=== PATIENT | female | born 1950 | race Two or more races ===

== ENCOUNTER 2024-09-11 21:24 | Inpatient (IN) | payer MEDICARE, OTHER ==
[~2024-09-11] VITALS: Ht 154.9 cm; Wt 72.2 kg
[2024-09-11 21:54] LABS: BASOPHILS # (AUTO) 0.2 K/UL (0.0-0.2); BASOPHILS % (AUTO) 1.1 % (0.0-2.0); EOSINOPHILS # (AUTO) 0.1 K/uL (0.0-0.7); EOSINOPHILS % (AUTO) 0.5 % (0.0-7.0); HEMATOCRIT 30.2 % (31.2-41.9); HEMOGLOBIN 9.8 g/dL (10.9-14.3); LYMPHOCYTES # (AUTO) 2.5 K/uL (0.8-4.8); LYMPHOCYTES % (AUTO) 15.5 % (20.5-51.5); MEAN CORPUSCULAR HEMOGLOBIN 23.4 uug (24.7-32.8); MEAN CORPUSCULAR HGB CONC 32 g/dL (32.3-35.6); MEAN CORPUSCULAR VOLUME 72.1 fL (75.5-95.3); MONOCYTES # (AUTO) 1.1 K/uL (0.1-1.30); MONOCYTES % (AUTO) 6.8 % (0.0-11.0); NEUTROPHILS # (AUTO) 12.3 K/uL (1.8-8.9); NEUTROPHILS % (AUTO) 76.1 % (38.5-71.5); PLATELET COUNT (AUTO) 140 K/uL (179-408); RED BLOOD CELL COUNT(AUTO) 4.19 MIL/uL (3.63-4.92); RED CELL DISTRIBUTION WIDTH 17.6 % (12.3-17.7); WHITE BLOOD COUNT (AUTO) 16.2 K/uL (3.8-11.8)
[2024-09-11 21:57] LABS: DIFFERENTIAL COMMENT 1
[2024-09-11 22:12] LABS: CALCIUM 10.1 mg/dL (8.5-10.1); CARBON DIOXIDE 29 mmol/L (21-32); CHLORIDE 93 mmol/L (98-107); CREATININE 2.5 mg/dL (0.6-1.3); POTASSIUM 3.8 mmol/L (3.5-5.1); SODIUM SERUM 130 mmol/L (136-145)
[2024-09-11 22:15] LABS: GLUCOSE 429 mg/dL (74-106); UREA NITROGEN, BLOOD 89 mg/dL (7-18)
[2024-09-11 22:18] LABS: ALANINE AMINOTRANSFERASE 120 U/L (14-59); ALBUMIN 3.1 g/dL (3.4-5.0); ALKALINE PHOSPHATASE 188 U/L (50-136); ASPARTATE AMINOTRANSFERASE 88 U/L (15-37); BILIRUBIN,DIRECT 0.2 mg/dL (0.0-0.2); BILIRUBIN,TOTAL 0.4 mg/dL (0.2-1.0); TOTAL PROTEIN, SERUM 8.6 g/dL (6.4-8.2)
[2024-09-11] MEDS ORDERED: FERR220S16 GT (22:19)
[2024-09-11] MEDS ORDERED: BACL10TA GT (22:19)
[2024-09-11] MEDS ORDERED: LEVE100S GT (22:19)
[2024-09-11] MEDS ORDERED: ONDA-104 GT (22:19)
[2024-09-11] MEDS ORDERED: ICOS1CAP GT (22:19)
[2024-09-11] MEDS ORDERED: INSU100V11 (22:19)
[2024-09-11] MEDS ORDERED: ALBU2.5V13 IH ×2 (22:19)
[2024-09-11] MEDS ORDERED: NA P133E RC (22:19)
[2024-09-11] MEDS ORDERED: MAGN400O6 GT (22:19)
[2024-09-11] MEDS ORDERED: ATOR20TA GT (22:19)
[2024-09-11] MEDS ORDERED: ATEN25TA GT (22:19)
[2024-09-11] MEDS ORDERED: [UNRECOGNIZED DRUG - CODE] TP (22:19)
[2024-09-11] MEDS ORDERED: SENN-18 GT (22:19)
[2024-09-11] MEDS ORDERED: ACID1TAB12 GT (22:19)
[2024-09-11] MEDS ORDERED: MEMA5TAB GT (22:19)
[2024-09-11] MEDS ORDERED: ESCI5TAB GT (22:19)
[2024-09-11] MEDS ORDERED: LETR2.5T GT (22:19)
[2024-09-11] MEDS ORDERED: ASCO500C18 GT (22:19)
[2024-09-11] MEDS ORDERED: CRAN3875 GT (22:19)
[2024-09-11] MEDS ORDERED: INSU100V7 SQ (22:19)
[2024-09-11] MEDS ORDERED: OMEG-88 GT (22:19)
[2024-09-11] MEDS ORDERED: MULT-1045 GT (22:19)
[2024-09-11] MEDS ORDERED: BISA10SU12 RC (22:19)
[2024-09-11] MEDS ORDERED: [UNRECOGNIZED DRUG - OTHER] TD (22:19)
[2024-09-11] MEDS ORDERED: ACET-73 GT (22:19)
[2024-09-11] MEDS ORDERED: ASPI81TA31 GT (22:19)
[2024-09-11 22:23] LABS: LACTIC ACID 2.2 mmol/L (0.4-2.0)
[2024-09-11 23:37] LABS: *BILIRUBIN,URIN NEGATIVE (NEGATIVE); *BLOOD, URINE 2+ (NEGATIVE); *CLARITY,URINE SLIGHTLY CLOUDY (CLEAR); *COLOR,URINE YELLOW (YELLOW); *KETONES,URINE NEGATIVE (NEGATIVE); *PROTEIN,URINE 2+ (NEGATIVE); *UROBILINOGEN,URINE 0.2 E.U./dl (NORMAL); LEUKOCYTE ESTERASE ,URINE 3+ (NEGATIVE); NITRITE, URINE NEGATIVE (NEGATIVE); PH,URINE 5.5 (5.0-8.0); UGLUCOSE TRACE (NEGATIVE)
[2024-09-11 23:44] LABS: BACTERIA,URINE MODERATE /HPF (NONE SEEN); MUCUS,URINE MANY /LPF (0-FEW); SQUAMOUS EPITHELIAL CELL,UR MODERATE /HPF (NONE SEEN); WBC,URINE 20-50 /HPF (0-3)
[2024-09-12] VITALS (8 sets, daily range): BP systolic 108–159; BP diastolic 43–71; TEMP 97.6–98.4; O2SAT 96–100
[2024-09-12] MEDS: IV NORMAL SALINE 1000 ML BAG IV ONE ×2 (00:52→02:27)
[2024-09-12] MEDS ORDERED: CEFTRIAXONE /D5W 50ML IVPB **ER PYXIS IV ONE (00:55)
[2024-09-12] MEDS: CEFTRIAXONE 1 G in IV DEXTROSE 5% 50 ML IV ONE (01:03)
[2024-09-12] MEDS ORDERED: ONDANSETRON 4 MG/2 ML VIAL IV PRN (02:30)
[2024-09-12] MEDS ORDERED: MAGNESIUM HYDROXIDE 30 ML LIQUID UDC PO PRN (02:30)
[2024-09-12] MEDS ORDERED: ACETAMINOPHEN 325 MG TABLET PO PRN (02:30)
[2024-09-12] MEDS ORDERED: REMEDY ESSENTIAL ZINC PASTE 113 GM TP PRN (02:30)
[2024-09-12] MEDS: IV NS 1000 ML 1,000 ML IV PRN (04:31)
[2024-09-12] MEDS: ENOXAPARIN SODIUM 30 MG/0.3 ML DISP.SYRIN SQ SCH (04:34)
[2024-09-12] MEDS: PANTOPRAZOLE SODIUM 40 MG VIAL IV SCH (08:55)
[2024-09-12 09:57] LABS: ALANINE AMINOTRANSFERASE 81 U/L (14-59); ALBUMIN 2.4 g/dL (3.4-5.0); ALKALINE PHOSPHATASE 103 U/L (50-136); ASPARTATE AMINOTRANSFERASE 52 U/L (15-37); BILIRUBIN,TOTAL 0.4 mg/dL (0.2-1.0); CALCIUM 8.7 mg/dL (8.5-10.1); CARBON DIOXIDE 27 mmol/L (21-32); CHLORIDE 104 mmol/L (98-107); CREATININE 2.3 mg/dL (0.6-1.3); GLUCOSE 311 mg/dL (74-106); MAGNESIUM 2.3 mg/dL (1.8-2.4); PHOSPHOROUS 2.5 mg/dL (2.5-4.9); POTASSIUM 3.5 mmol/L (3.5-5.1); SODIUM SERUM 138 mmol/L (136-145); TOTAL PROTEIN, SERUM 7.1 g/dL (6.4-8.2)
[2024-09-12 10:15] LABS: UREA NITROGEN, BLOOD 81 mg/dL (7-18)
[2024-09-12 12:52] LABS: *CREATININE,URINE 24.7 mg/dL (30-125); *URINE TOTAL PROTEIN RANDOM 32.5 mg/dL (<150/24HR)
[2024-09-12 13:00] LABS: *BILIRUBIN,URIN NEGATIVE (NEGATIVE); *BLOOD, URINE 1+ (NEGATIVE); *CLARITY,URINE CLEAR (CLEAR); *COLOR,URINE YELLOW (YELLOW); *KETONES,URINE NEGATIVE (NEGATIVE); *PROTEIN,URINE 1+ (NEGATIVE); *UROBILINOGEN,URINE 0.2 E.U./dl (NORMAL); LEUKOCYTE ESTERASE ,URINE 3+ (NEGATIVE); NITRITE, URINE NEGATIVE (NEGATIVE); PH,URINE 5.5 (5.0-8.0); UGLUCOSE NEGATIVE (NEGATIVE)
[2024-09-12] MEDS ORDERED: NEPRO 1000 ML GT PRN (13:00)
[2024-09-12 13:05] LABS: BACTERIA,URINE FEW /HPF (NONE SEEN); SQUAMOUS EPITHELIAL CELL,UR FEW /HPF (NONE SEEN); WBC,URINE 20-50 /HPF (0-3)
[2024-09-12] MEDS: NEPRO 1000 ML GT PRN (13:17)
[2024-09-12] MEDS ORDERED: ASCO500T85 GT (13:32)
[2024-09-12] MEDS ORDERED: LEVO100T10 PO (13:32)
[2024-09-12 13:47] LABS: YEAST,URINE MODERATE /HPF (NONE SEEN)
[2024-09-12] MEDS ORDERED: Medication Not On Formulary EA (Icosapent Ethyl (Vascepa) 2 CAP) GT SCH (17:00)
[2024-09-12] MEDS ORDERED: Medication Not On Formulary EA (Ferrous Sulfate 330 MG) GT SCH (17:00)
[2024-09-12] MEDS: FERROUS SULFATE 300 MG/5 ML LIQUID UDC GT SCH (17:04)
[2024-09-12] MEDS: levETIRAcetam 500 MG/5 ML LIQUID UDC GT SCH (17:04)
[2024-09-12] MEDS: OMEGA-3 FATTY ACIDS/FISH OIL CAPSULE GT SCH (17:04)
[2024-09-12] MEDS: MEMANTINE HCL 5 MG TABLET GT SCH (17:05)
[2024-09-12] MEDS: LETROZOLE 2.5 MG TABLET PO SCH (17:09)
[2024-09-12] MEDS: LACTULOSE 20 G/30 ML LIQUID UDC GT ONE (18:57)
[2024-09-12] MEDS: SENNOSIDES 1 TABLET GT SCH (20:53)
[2024-09-12] MEDS: DOCUSATE SODIUM 250 MG CAPSULE PO SCH (20:53)
[2024-09-12] MEDS: ATORVASTATIN 20 MG TABLET GT SCH (20:53)
[2024-09-12] MEDS: CEFTRIAXONE 1 G in IV DEXTROSE 5% 50 ML IV SCH (20:54)
[2024-09-12] MEDS: INSULIN GLARGINE,HUM 300 UNITS/3 ML CARTRIDGE SQ SCH (21:58)
[2024-09-12] MEDS ORDERED: DEXTROSE 50% 50 ML DISP.SYRIN IV PRN (22:15)
[2024-09-12] MEDS: INSULIN REGULAR, HUMAN 1000 UNIT/10 ML VIAL SQ PRN (22:24)
[2024-09-13 01:09] VITALS: BP 153/68; TEMP 98.2; O2SAT 96
[2024-09-13] MEDS: BLOOD SUGAR DIAGNOSTIC 1 EACH STRIP VI SCH (01:09)
[2024-09-13 06:02] VITALS: BP 142/61; TEMP 98.7; O2SAT 97
[2024-09-13] MEDS: LEVOTHYROXINE SODIUM 100 MCG TABLET PO SCH (06:41)
[2024-09-13 07:38] VITALS: BP 125/56; TEMP 97.9; O2SAT 99
[2024-09-13 07:42] LABS: BASOPHILS # (AUTO) 0.1 K/UL (0.0-0.2); BASOPHILS % (AUTO) 0.6 % (0.0-2.0); EOSINOPHILS # (AUTO) 0.2 K/uL (0.0-0.7); EOSINOPHILS % (AUTO) 1.9 % (0.0-7.0); HEMATOCRIT 25.9 % (31.2-41.9); HEMOGLOBIN 8.3 g/dL (10.9-14.3); LYMPHOCYTES # (AUTO) 1.5 K/uL (0.8-4.8); LYMPHOCYTES % (AUTO) 12.9 % (20.5-51.5); MEAN CORPUSCULAR HEMOGLOBIN 23.5 uug (24.7-32.8); MEAN CORPUSCULAR HGB CONC 32 g/dL (32.3-35.6); MEAN CORPUSCULAR VOLUME 72.9 fL (75.5-95.3); MONOCYTES % (AUTO) 9.2 % (0.0-11.0); NEUTROPHILS # (AUTO) 8.5 K/uL (1.8-8.9); NEUTROPHILS % (AUTO) 75.4 % (38.5-71.5); PLATELET COUNT (AUTO) 113 K/uL (179-408); RED BLOOD CELL COUNT(AUTO) 3.55 MIL/uL (3.63-4.92); RED CELL DISTRIBUTION WIDTH 18.1 % (12.3-17.7); WHITE BLOOD COUNT (AUTO) 11.3 K/uL (3.8-11.8)
[2024-09-13 07:43] LABS: DIFFERENTIAL COMMENT 1
[2024-09-13 07:53] LABS: ALANINE AMINOTRANSFERASE 93 U/L (14-59); ALBUMIN 2.4 g/dL (3.4-5.0); ALKALINE PHOSPHATASE 139 U/L (50-136); ASPARTATE AMINOTRANSFERASE 65 U/L (15-37); BILIRUBIN,TOTAL 0.2 mg/dL (0.2-1.0); CALCIUM 8.7 mg/dL (8.5-10.1); CARBON DIOXIDE 26 mmol/L (21-32); CHLORIDE 106 mmol/L (98-107); CREATINE KINASE, TOTAL 84 U/L (26-192); CREATININE 2.2 mg/dL (0.6-1.3); GLUCOSE 254 mg/dL (74-106); MAGNESIUM 2.1 mg/dL (1.8-2.4); PHOSPHOROUS 1.6 mg/dL (2.5-4.9); POTASSIUM 3.3 mmol/L (3.5-5.1); SODIUM SERUM 130 mmol/L (136-145); TOTAL PROTEIN, SERUM 7.3 g/dL (6.4-8.2); UREA NITROGEN, BLOOD 68 mg/dL (7-18)
[2024-09-13] MEDS: ATENOLOL 25 MG TABLET GT SCH (08:39)
[2024-09-13] MEDS: ASPIRIN 81 MG TAB.CHEW GT SCH (08:39)
[2024-09-13] MEDS: ESCITALOPRAM OXALATE 10 MG TABLET PO SCH (08:39)
[2024-09-13] MEDS: MULTIVITAMINS,THERAPEUTIC TABLET PO SCH (08:39)
[2024-09-13] MEDS: ASCORBIC ACID 500 MG TABLET GT SCH (08:39)
[2024-09-13] MEDS: ACIDOPHILUS/BULGARICUS CHEW TAB PO SCH (08:39)
[2024-09-13] MEDS: BACLOFEN 10 MG TABLET GT SCH (08:54)
[2024-09-13] MEDS ORDERED: Medication Not On Formulary EA (Escitalopram Oxalate (Lexapro) 5 MG) GT SCH (09:00)
[2024-09-13] MEDS ORDERED: Medication Not On Formulary EA (Multivitamin (Multi-Vitamin Daily) 1 EACH) GT SCH (09:00)
[2024-09-13] MEDS ORDERED: Medication Not On Formulary EA (Acidophilus/Bulgaricus (Floranex Tablet) 1 EACH) GT SCH (09:00)
[2024-09-13] MEDS ORDERED: Medication Not On Formulary EA (Letrozole (Femara) 2.5 MG) GT SCH (09:00)
[2024-09-13] MEDS ORDERED: Medication Not On Formulary EA (Cran/Vitc/Mannose/Inulin/Brom (Uti-Stat Liquid) 30 MG) GT SCH (09:00)
[2024-09-13] MEDS ORDERED: POTASSIUM CHLORIDE 20 MEQ POWDER PACKET GT ONE (10:30)
[2024-09-13 11:33] VITALS: BP 139/61; TEMP 97.7; O2SAT 100
[2024-09-13 11:40] VITALS: BP 136/63; TEMP 98; O2SAT 97
[2024-09-13] MEDS: POTASSIUM CHLORIDE 10 MEQ TAB.PRT.SR PO ONE (12:34)
[2024-09-13 15:27] LABS: THYROID STIMULATING HORMONE 92.729 mIU/mL (0.358-3.740)
[2024-09-13 16:51] LABS: IRON, SERUM 49 ug/dL (50-175)
[2024-09-13] MEDS: NEUTRA PHOS PACKET GT ONE (16:53)
[2024-09-13] MEDS: MUPIROCIN 2% OINT 22 GM TUBE NS SCH (16:54)
[2024-09-13 17:01] LABS: *RHEUMATOID FACTOR SCREEN NEGATIVE (NEGATIVE)
[2024-09-13] MEDS ORDERED: FLEET ENEMA 133 ML BOTTLE RC ONE (19:15)
[2024-09-13 19:25] VITALS: BP 123/67; TEMP 98.4; O2SAT 96
[2024-09-13] MEDS: TAMSULOSIN HCL 0.4 MG CAP.SR.24H XX SCH (20:36)
[2024-09-13] MEDS: FLEET ENEMA 133 ML BOTTLE RC ONE (21:41)
[2024-09-14 04:06] LABS: PTH, INTACT 59 pg/mL (15-65)
[2024-09-14 05:28] VITALS: BP 127/58; TEMP 98.7; O2SAT 96
[2024-09-14] MEDS: PANTOPRAZOLE ORAL SUSPENSION 40 MG SUSPDR.PKT GT SCH (06:10)
[2024-09-14 06:59] LABS: BASOPHILS # (AUTO) 0.1 K/UL (0.0-0.2); BASOPHILS % (AUTO) 0.7 % (0.0-2.0); EOSINOPHILS # (AUTO) 0.2 K/uL (0.0-0.7); EOSINOPHILS % (AUTO) 1.8 % (0.0-7.0); HEMATOCRIT 24.3 % (31.2-41.9); HEMOGLOBIN 7.9 g/dL (10.9-14.3); LYMPHOCYTES # (AUTO) 1.7 K/uL (0.8-4.8); LYMPHOCYTES % (AUTO) 16.1 % (20.5-51.5); MEAN CORPUSCULAR HEMOGLOBIN 23.8 uug (24.7-32.8); MEAN CORPUSCULAR HGB CONC 33 g/dL (32.3-35.6); MEAN CORPUSCULAR VOLUME 73.1 fL (75.5-95.3); MONOCYTES % (AUTO) 9.9 % (0.0-11.0); NEUTROPHILS # (AUTO) 7.4 K/uL (1.8-8.9); NEUTROPHILS % (AUTO) 71.5 % (38.5-71.5); PLATELET COUNT (AUTO) 118 K/uL (179-408); RED BLOOD CELL COUNT(AUTO) 3.33 MIL/uL (3.63-4.92); WHITE BLOOD COUNT (AUTO) 10.3 K/uL (3.8-11.8)
[2024-09-14 07:11] LABS: AMMONIA 32 umol/L (11-32); DIFFERENTIAL COMMENT 1
[2024-09-14 07:14] LABS: ALANINE AMINOTRANSFERASE 87 U/L (14-59); ALBUMIN 2.2 g/dL (3.4-5.0); ALKALINE PHOSPHATASE 147 U/L (50-136); ASPARTATE AMINOTRANSFERASE 51 U/L (15-37); BILIRUBIN,TOTAL 0.2 mg/dL (0.2-1.0); CALCIUM 7.9 mg/dL (8.5-10.1); CARBON DIOXIDE 25 mmol/L (21-32); CHLORIDE 110 mmol/L (98-107); GLUCOSE 311 mg/dL (74-106); POTASSIUM 3.4 mmol/L (3.5-5.1); SODIUM SERUM 145 mmol/L (136-145); TOTAL PROTEIN, SERUM 6.9 g/dL (6.4-8.2); UREA NITROGEN, BLOOD 55 mg/dL (7-18)
[2024-09-14 08:08] LABS: *IMMUNOGLOBULIN G, SERUM 1742 mg/dL (586-1602); CANCER ANTIGEN 15-3 10.4 U/mL (0.0-25.0); CARCINOEMBRYONIC AG (CEA) 7.4 ng/mL (0.0-4.7); HEPATITIS B SURFACE AB, QUAL Non Reactive (.); HEPATITIS B SURFACE AG Negative (Negative); HEPATITIS C VIRUS ANTIBODY Non Reactive (Non Reactive); IMMUNOGLOBULIN A, SERUM 356 mg/dL (64-422); IMMUNOGLOBULIN M, SERUM 111 mg/dL (26-217)
[2024-09-14 08:50] LABS: CARBON DIOXIDE 24 mmol/L (21-32); CHLORIDE 111 mmol/L (98-107); GLUCOSE 319 mg/dL (74-106); POTASSIUM 3.4 mmol/L (3.5-5.1); SODIUM SERUM 145 mmol/L (136-145)
[2024-09-14 08:51] LABS: CALCIUM 8.4 mg/dL (8.5-10.1); UREA NITROGEN, BLOOD 60 mg/dL (7-18)
[2024-09-14 09:02] LABS: PHOSPHOROUS 1.9 mg/dL (2.5-4.9)
[2024-09-14] MEDS: LACTULOSE 20 G/30 ML LIQUID UDC GT SCH (09:11)
[2024-09-14 09:13] LABS: *OCCULT BLOOD STOOL NEGATIVE (NEGATIVE)
[2024-09-14 09:18] VITALS: BP 133/56; TEMP 98.4; O2SAT 96
[2024-09-14 10:00] VITALS: O2SAT 96
[2024-09-14 10:07] LABS: *ANTI-SCLERODERMA-70 AB <0.2 AI (0.0-0.9); *RNP ANTIBODIES <0.2 AI (0.0-0.9); *SJOGREN'S ANTI-SS-A <0.2 AI (0.0-0.9); *SJOGREN'S ANTI-SS-B <0.2 AI (0.0-0.9); *SMITH ANTIBODIES <0.2 AI (0.0-0.9); ANTI-DNA(DS) AB, QN 1 IU/mL (0-9); ANTI-NUCLEAR AB DIRECT Negative (Negative); FOLATE (FOLIC ACID), SERUM >20.0 ng/mL (>3.0)
[2024-09-14 11:11] VITALS: BP 121/72; TEMP 98.4; O2SAT 97
[2024-09-14 11:11] LABS: FREE KAPPA LT CHAINS SERUM 117.7 mg/L (3.3-19.4); FREE LAMBDA LT CHAIN SERUM 132.8 mg/L (5.7-26.3); KAPPA/LAMBDA RATIO SERUM 0.89 (0.26-1.65)
[2024-09-14] MEDS: FLUCONAZOLE 400MG /NS 200ML IV 400 MG in PREMIXED 1 EACH IV SCH (11:40)
[2024-09-14] MEDS ORDERED: SOD FERRIC GLUC COMPLX/SUCROSE 125 MG in IV NORMAL SALINE 100 ML IV SCH (14:00)
[2024-09-14 15:39] VITALS: BP 100/67; TEMP 98.6; O2SAT 95
[2024-09-14] MEDS: POTASSIUM CHLORIDE 20 MEQ POWDER PACKET GT ONE (16:13)
[2024-09-14] MEDS: NEUTRA PHOS PACKET GT ONE (16:17)
[2024-09-14 23:08] VITALS: BP 157/63; TEMP 97.9; O2SAT 97
[2024-09-15] MEDS: LEVOTHYROXINE SODIUM 112 MCG TABLET PO SCH (06:07)
[2024-09-15 06:43] VITALS: BP 139/69; TEMP 98; O2SAT 97
[2024-09-15 07:40] LABS: BASOPHILS # (AUTO) 0.1 K/UL (0.0-0.2); BASOPHILS % (AUTO) 1.2 % (0.0-2.0); EOSINOPHILS # (AUTO) 0.4 K/uL (0.0-0.7); HEMATOCRIT 23.9 % (31.2-41.9); HEMOGLOBIN 7.8 g/dL (10.9-14.3); LYMPHOCYTES # (AUTO) 1.7 K/uL (0.8-4.8); LYMPHOCYTES % (AUTO) 18.7 % (20.5-51.5); MEAN CORPUSCULAR HEMOGLOBIN 23.9 uug (24.7-32.8); MEAN CORPUSCULAR HGB CONC 33 g/dL (32.3-35.6); MONOCYTES # (AUTO) 0.7 K/uL (0.1-1.30); MONOCYTES % (AUTO) 7.5 % (0.0-11.0); NEUTROPHILS # (AUTO) 6.3 K/uL (1.8-8.9); NEUTROPHILS % (AUTO) 68.6 % (38.5-71.5); PLATELET COUNT (AUTO) 118 K/uL (179-408); RED BLOOD CELL COUNT(AUTO) 3.27 MIL/uL (3.63-4.92); RED CELL DISTRIBUTION WIDTH 17.7 % (12.3-17.7); WHITE BLOOD COUNT (AUTO) 9.2 K/uL (3.8-11.8)
[2024-09-15 07:46] LABS: DIFFERENTIAL COMMENT 1
[2024-09-15 07:54] LABS: ALBUMIN 2.1 g/dL (3.4-5.0); BILIRUBIN,DIRECT 0.1 mg/dL (0.0-0.2); BILIRUBIN,TOTAL 0.2 mg/dL (0.2-1.0); TOTAL PROTEIN, SERUM 6.5 g/dL (6.4-8.2)
[2024-09-15 07:56] LABS: ALANINE AMINOTRANSFERASE 67 U/L (14-59); ALBUMIN 2.1 g/dL (3.4-5.0); ALKALINE PHOSPHATASE 139 U/L (50-136); ASPARTATE AMINOTRANSFERASE 45 U/L (15-37); BILIRUBIN,TOTAL 0.2 mg/dL (0.2-1.0); CALCIUM 8.1 mg/dL (8.5-10.1); CARBON DIOXIDE 23 mmol/L (21-32); CHLORIDE 113 mmol/L (98-107); GLUCOSE 215 mg/dL (74-106); POTASSIUM 3.5 mmol/L (3.5-5.1); SODIUM SERUM 147 mmol/L (136-145); TOTAL PROTEIN, SERUM 6.5 g/dL (6.4-8.2); UREA NITROGEN, BLOOD 52 mg/dL (7-18)
[2024-09-15 08:22] LABS: THYROID STIMULATING HORMONE 70.014 mIU/mL (0.358-3.740)
[2024-09-15 10:33] VITALS: BP 139/63; TEMP 97.9; O2SAT 99
[2024-09-15] MEDS: FREE WATER VIA TUBE FEEDING GT SCH (12:58)
[2024-09-15] MEDS: SIMETHICONE 80 MG TAB.CHEW GT ONE (13:05)
[2024-09-15] MEDS: FLUCONAZOLE 200 MG/NS 100ML IV 200 MG in PREMIXED 1 EACH IV SCH (13:06)
[2024-09-15] MEDS: NEUTRA PHOS PACKET GT ONE (14:10)
[2024-09-15 15:40] VITALS: BP 123/77; TEMP 97.9; O2SAT 95
[2024-09-15 19:23] VITALS: BP 96/55; TEMP 98.2; O2SAT 97
[2024-09-16 06:29] VITALS: BP 125/65; TEMP 98.8; O2SAT 99
[2024-09-16 08:04] LABS: BASOPHILS # (AUTO) 0.1 K/UL (0.0-0.2); BASOPHILS % (AUTO) 1.1 % (0.0-2.0); DIFFERENTIAL COMMENT 0; EOSINOPHILS # (AUTO) 0.5 K/uL (0.0-0.7); EOSINOPHILS % (AUTO) 4.9 % (0.0-7.0); HEMATOCRIT 25.9 % (31.2-41.9); HEMOGLOBIN 8.3 g/dL (10.9-14.3); LYMPHOCYTES # (AUTO) 2.4 K/uL (0.8-4.8); LYMPHOCYTES % (AUTO) 22.8 % (20.5-51.5); MEAN CORPUSCULAR HEMOGLOBIN 23.5 uug (24.7-32.8); MEAN CORPUSCULAR HGB CONC 32 g/dL (32.3-35.6); MEAN CORPUSCULAR VOLUME 73.4 fL (75.5-95.3); MONOCYTES # (AUTO) 0.7 K/uL (0.1-1.30); MONOCYTES % (AUTO) 6.3 % (0.0-11.0); NEUTROPHILS # (AUTO) 6.8 K/uL (1.8-8.9); NEUTROPHILS % (AUTO) 64.9 % (38.5-71.5); RED BLOOD CELL COUNT(AUTO) 3.53 MIL/uL (3.63-4.92); RED CELL DISTRIBUTION WIDTH 18.2 % (12.3-17.7); WHITE BLOOD COUNT (AUTO) 10.5 K/uL (3.8-11.8)
[2024-09-16 08:15] LABS: ALANINE AMINOTRANSFERASE 59 U/L (14-59); ALBUMIN 2.1 g/dL (3.4-5.0); ALKALINE PHOSPHATASE 120 U/L (50-136); ASPARTATE AMINOTRANSFERASE 38 U/L (15-37); BILIRUBIN,TOTAL 0.2 mg/dL (0.2-1.0); CALCIUM 8.1 mg/dL (8.5-10.1); CARBON DIOXIDE 21 mmol/L (21-32); CHLORIDE 109 mmol/L (98-107); CREATININE 1.8 mg/dL (0.6-1.3); GLUCOSE 165 mg/dL (74-106); POTASSIUM 3.6 mmol/L (3.5-5.1); SODIUM SERUM 142 mmol/L (136-145); TOTAL PROTEIN, SERUM 6.7 g/dL (6.4-8.2); UREA NITROGEN, BLOOD 48 mg/dL (7-18)
[2024-09-16 11:08] VITALS: BP 111/70; TEMP 97.7; O2SAT 98
[2024-09-16 11:42] LABS: LYMPHOCYTES % (MANUAL) 23 % (20-40); NEUTROPHILS % (MANUAL) 65 % (42-75)
[2024-09-16 11:43] LABS: BASOPHILS % (MANUAL) 1 % (0-2); EOSINOPHILS % (MANUAL) 5 % (0-8); MONOCYTES % (MANUAL) 6 % (2-10); PLATELET COUNT (AUTO) 126 K/uL (179-408); PLATELET ESTIMATE DECREASED
[2024-09-16 11:44] LABS: ANISOCYTOSIS 1+; HYPOCHROMASIA 1+
[2024-09-16] MEDS: NEUTRA PHOS PACKET GT ONE (15:10)
[2024-09-16 15:27] VITALS: BP 132/47; TEMP 98.2; O2SAT 94
[2024-09-16 19:15] VITALS: BP 132/63; TEMP 98.4
[2024-09-17 06:48] VITALS: BP 148/62; TEMP 98.2; O2SAT 98
[2024-09-17 07:30] LABS: ALANINE AMINOTRANSFERASE 44 U/L (14-59); ALKALINE PHOSPHATASE 111 U/L (50-136); ASPARTATE AMINOTRANSFERASE 30 U/L (15-37); BILIRUBIN,TOTAL 0.2 mg/dL (0.2-1.0); CARBON DIOXIDE 20 mmol/L (21-32); CHLORIDE 107 mmol/L (98-107); CREATININE 1.8 mg/dL (0.6-1.3); GLUCOSE 151 mg/dL (74-106); PHOSPHOROUS 2.2 mg/dL (2.5-4.9); POTASSIUM 3.8 mmol/L (3.5-5.1); SODIUM SERUM 137 mmol/L (136-145); TOTAL PROTEIN, SERUM 6.4 g/dL (6.4-8.2); UREA NITROGEN, BLOOD 47 mg/dL (7-18)
[2024-09-17 11:30] VITALS: O2SAT 98
[2024-09-17 11:35] VITALS: BP 132/54; TEMP 98; O2SAT 98
[2024-09-17] MEDS: FLUCONAZOLE 200 MG TABLET GT SCH (12:38)
[2024-09-17] MEDS: NEUTRA PHOS PACKET GT ONE (14:23)
[2024-09-17] MEDS ORDERED: NEUTRA PHOS PACKET PO ONE (15:30)
[2024-09-17 16:02] VITALS: BP 137/66; TEMP 97.8; O2SAT 98
[2024-09-17 18:51] LABS: BASOPHILS # (AUTO) 0.1 K/UL (0.0-0.2); BASOPHILS % (AUTO) 1.1 % (0.0-2.0); DIFFERENTIAL COMMENT 0; EOSINOPHILS # (AUTO) 0.6 K/uL (0.0-0.7); HEMATOCRIT 24.2 % (31.2-41.9); HEMOGLOBIN 7.8 g/dL (10.9-14.3); LYMPHOCYTES # (AUTO) 2.1 K/uL (0.8-4.8); LYMPHOCYTES % (AUTO) 18.4 % (20.5-51.5); MEAN CORPUSCULAR HEMOGLOBIN 23.7 uug (24.7-32.8); MEAN CORPUSCULAR HGB CONC 32 g/dL (32.3-35.6); MEAN CORPUSCULAR VOLUME 73.5 fL (75.5-95.3); MONOCYTES # (AUTO) 0.8 K/uL (0.1-1.30); MONOCYTES % (AUTO) 6.7 % (0.0-11.0); NEUTROPHILS # (AUTO) 7.8 K/uL (1.8-8.9); NEUTROPHILS % (AUTO) 68.8 % (38.5-71.5); PLATELET COUNT (AUTO) 136 K/uL (179-408); RED BLOOD CELL COUNT(AUTO) 3.29 MIL/uL (3.63-4.92); RED CELL DISTRIBUTION WIDTH 18.1 % (12.3-17.7); WHITE BLOOD COUNT (AUTO) 11.3 K/uL (3.8-11.8)
[2024-09-17 19:48] VITALS: BP 132/63; TEMP 98.6; O2SAT 99
[2024-09-18 04:33] VITALS: O2SAT 98
[2024-09-18 05:10] VITALS: BP 139/55; TEMP 98.4; O2SAT 96
[2024-09-18 06:54] LABS: BASOPHILS # (AUTO) 0.2 K/UL (0.0-0.2); BASOPHILS % (AUTO) 1.5 % (0.0-2.0); EOSINOPHILS # (AUTO) 0.5 K/uL (0.0-0.7); EOSINOPHILS % (AUTO) 5.2 % (0.0-7.0); HEMATOCRIT 25.4 % (31.2-41.9); HEMOGLOBIN 8.3 g/dL (10.9-14.3); LYMPHOCYTES % (AUTO) 19.9 % (20.5-51.5); MEAN CORPUSCULAR HEMOGLOBIN 23.7 uug (24.7-32.8); MEAN CORPUSCULAR HGB CONC 32 g/dL (32.3-35.6); MONOCYTES # (AUTO) 0.7 K/uL (0.1-1.30); MONOCYTES % (AUTO) 7.2 % (0.0-11.0); NEUTROPHILS # (AUTO) 6.8 K/uL (1.8-8.9); NEUTROPHILS % (AUTO) 66.2 % (38.5-71.5); PLATELET COUNT (AUTO) 150 K/uL (179-408); RED BLOOD CELL COUNT(AUTO) 3.49 MIL/uL (3.63-4.92); RED CELL DISTRIBUTION WIDTH 18.1 % (12.3-17.7); WHITE BLOOD COUNT (AUTO) 10.2 K/uL (3.8-11.8)
[2024-09-18 07:04] LABS: DIFFERENTIAL COMMENT 1
[2024-09-18 07:11] LABS: ALANINE AMINOTRANSFERASE 36 U/L (14-59); ALBUMIN 2.1 g/dL (3.4-5.0); ALKALINE PHOSPHATASE 104 U/L (50-136); ASPARTATE AMINOTRANSFERASE 43 U/L (15-37); BILIRUBIN,TOTAL 0.2 mg/dL (0.2-1.0); CALCIUM 8.2 mg/dL (8.5-10.1); CARBON DIOXIDE 23 mmol/L (21-32); CHLORIDE 106 mmol/L (98-107); CREATININE 1.9 mg/dL (0.6-1.3); GLUCOSE 126 mg/dL (74-106); POTASSIUM 3.7 mmol/L (3.5-5.1); SODIUM SERUM 140 mmol/L (136-145); TOTAL PROTEIN, SERUM 6.6 g/dL (6.4-8.2); UREA NITROGEN, BLOOD 45 mg/dL (7-18)
[2024-09-18 12:00] VITALS: BP 122/60; TEMP 97.8; O2SAT 97
[2024-09-18 16:00] VITALS: BP 137/67; TEMP 98.3; O2SAT 100
[2024-09-18 16:13] VITALS: O2SAT 100
[2024-09-18 19:30] VITALS: BP 155/67; TEMP 98.9; O2SAT 97
[2024-09-19 01:59] VITALS: O2SAT 98
[2024-09-19 05:57] VITALS: BP 112/66; TEMP 98.7; O2SAT 96
[2024-09-19 07:45] LABS: BASOPHILS # (AUTO) 0.2 K/UL (0.0-0.2); BASOPHILS % (AUTO) 1.2 % (0.0-2.0); EOSINOPHILS # (AUTO) 0.4 K/uL (0.0-0.7); EOSINOPHILS % (AUTO) 2.7 % (0.0-7.0); HEMATOCRIT 25.2 % (31.2-41.9); HEMOGLOBIN 8.2 g/dL (10.9-14.3); LYMPHOCYTES # (AUTO) 1.6 K/uL (0.8-4.8); LYMPHOCYTES % (AUTO) 11.5 % (20.5-51.5); MEAN CORPUSCULAR HEMOGLOBIN 23.5 uug (24.7-32.8); MEAN CORPUSCULAR HGB CONC 33 g/dL (32.3-35.6); MEAN CORPUSCULAR VOLUME 72.1 fL (75.5-95.3); MONOCYTES # (AUTO) 0.7 K/uL (0.1-1.30); MONOCYTES % (AUTO) 5.3 % (0.0-11.0); NEUTROPHILS # (AUTO) 10.9 K/uL (1.8-8.9); NEUTROPHILS % (AUTO) 79.3 % (38.5-71.5); PLATELET COUNT (AUTO) 179 K/uL (179-408); RED BLOOD CELL COUNT(AUTO) 3.49 MIL/uL (3.63-4.92); RED CELL DISTRIBUTION WIDTH 18.2 % (12.3-17.7); WHITE BLOOD COUNT (AUTO) 13.7 K/uL (3.8-11.8)
[2024-09-19 07:52] LABS: DIFFERENTIAL COMMENT 1
[2024-09-19 08:20] LABS: CALCIUM 8.4 mg/dL (8.5-10.1); CARBON DIOXIDE 23 mmol/L (21-32); CHLORIDE 104 mmol/L (98-107); CREATININE 1.9 mg/dL (0.6-1.3); GLUCOSE 177 mg/dL (74-106); POTASSIUM 3.9 mmol/L (3.5-5.1); SODIUM SERUM 137 mmol/L (136-145); UREA NITROGEN, BLOOD 49 mg/dL (7-18)
[2024-09-19 10:58] VITALS: BP 139/50; TEMP 98.3; O2SAT 100
[2024-09-19] MEDS ORDERED: FLUC200T GT (11:15)
[2024-09-19] MEDS ORDERED: LEVO112T5 PO (11:15)
[2024-09-19] MEDS ORDERED: MUPI15CR TP (13:27)
[2024-09-19 13:58] LABS: BAND % (MANUAL) 1 % (0-10); EOSINOPHILS % (MANUAL) 2 % (0-8); LYMPHOCYTES % (MANUAL) 12 % (20-40); MONOCYTES % (MANUAL) 4 % (2-10); NEUTROPHILS % (MANUAL) 81 % (42-75); PLATELET ESTIMATE ADEQUATE
[2024-09-19 13:59] LABS: ANISOCYTOSIS 2+; TEAR DROP CELLS 1+
[2024-09-19 14:00] LABS: HYPOCHROMASIA 1+
[2024-09-20 17:11] LABS: A/G RATIO 0.7 (0.7-1.7); ALBUMIN 2.8 g/dL (2.9-4.4); ALPHA-1-GLOBULIN 0.3 g/dL (0.0-0.4); ALPHA-2-GLOBULIN 0.9 g/dL (0.4-1.0); BETA GLOBULIN 0.8 g/dL (0.7-1.3); GAMMA GLOBULIN 1.9 g/dL (0.4-1.8); GLOBULIN, TOTAL 3.9 g/dL (2.2-3.9); M-SPIKE Not Observed g/dL (Not Observed); PROTEIN, TOTAL 6.7 g/dL (6.0-8.5)
[2024-09-20 17:11] LABS: A/G RATIO 0.6 (0.7-1.7); ALBUMIN 2.5 g/dL (2.9-4.4); ALPHA-1-GLOBULIN 0.3 g/dL (0.0-0.4); ALPHA-2-GLOBULIN 0.9 g/dL (0.4-1.0); BETA GLOBULIN 0.8 g/dL (0.7-1.3); GAMMA GLOBULIN 1.9 g/dL (0.4-1.8); GLOBULIN, TOTAL 3.9 g/dL (2.2-3.9); M-SPIKE Not Observed g/dL (Not Observed); PROTEIN, TOTAL 6.4 g/dL (6.0-8.5)
== END 2024-09-19 15:45 | DRG 698 ==
LOC: ER 21:32 → TELE3 09-12 02:32 → MEDSURG3 09-13 10:34
PROVIDERS: ADMIT Nurse Practitioner Family; ATTEND Nurse Practitioner Acute Care
DX: T83.511A Infection and inflammatory reaction due to indwelling urethral catheter, initial encounter (principal); A41.9 Sepsis, unspecified organism; G93.41 Metabolic encephalopathy; B37.7 Candidal sepsis; N17.0 Acute kidney failure with tubular necrosis; B37.49 Other urogenital candidiasis; E87.20 Acidosis, unspecified; D61.818 Other pancytopenia; J98.11 Atelectasis; F03.93 Unspecified dementia, unspecified severity, with mood disturbance; E87.1 Hypo-osmolality and hyponatremia; E44.0 Moderate protein-calorie malnutrition; J90 Pleural effusion, not elsewhere classified; N18.9 Chronic kidney disease, unspecified; N39.0 Urinary tract infection, site not specified; R97.0 Elevated carcinoembryonic antigen [CEA]; E03.9 Hypothyroidism, unspecified; R13.10 Dysphagia, unspecified; Y92.129 Unspecified place in nursing home as the place of occurrence of the external cause; J40 Bronchitis, not specified as acute or chronic; K56.41 Fecal impaction; D63.1 Anemia in chronic kidney disease; E78.5 Hyperlipidemia, unspecified; E11.22 Type 2 diabetes mellitus with diabetic chronic kidney disease; Z90.12 Acquired absence of left breast and nipple; Z85.3 Personal history of malignant neoplasm of breast; Z79.890 Hormone replacement therapy; Z79.4 Long term (current) use of insulin; I44.7 Left bundle-branch block, unspecified; I12.9 Hypertensive chronic kidney disease with stage 1 through stage 4 chronic kidney disease, or unspecified chronic kidney disease; G40.909 Epilepsy, unspecified, not intractable, without status epilepticus; Z79.82 Long term (current) use of aspirin; F32.A Depression, unspecified; E86.0 Dehydration; E88.09 Other disorders of plasma-protein metabolism, not elsewhere classified; K57.30 Diverticulosis of large intestine without perforation or abscess without bleeding; Z79.899 Other long term (current) drug therapy; Z93.1 Gastrostomy status; Z68.30 Body mass index [BMI] 30.0-30.9, adult; Z22.322 Carrier or suspected carrier of Methicillin resistant Staphylococcus aureus; Y84.6 Urinary catheterization as the cause of abnormal reaction of the patient, or of later complication, without mention of misadventure at the time of the procedure; R74.01 Elevation of levels of liver transaminase levels; E86.1 Hypovolemia
CPT/HCPCS: 36415; 70450; 71045; 71250; 76641-TC; 76705; 76770; 82378; 82746; 82784; 83550; 83605; 83735; 83970; 84100; 84155; 84165; 84300; 84443; 84484; 85025; 86038; 86300; 86334; 86430; 86706; 86803; 87040; 87086; 87340; 94760; A6213; G0378; J0278; J0696; J1450; J1650; J1815; J2470; J2916; J7040; J8499